=== PATIENT | female | born 1970 | race African-American/Black ===

== ENCOUNTER 2018-08-31 14:27 | Inpatient (IN) | payer MEDICAID ==
[~2018-08-31] VITALS: Ht 167.6 cm; Wt 124.3 kg
[~2018-08-31 14:27] MED LIST: ACET-2178 PO; AMLO10TA80 PO; DESL5TAB PO; DORZ10DR9 EACHEYE; ESTR0.6264 MT; GABA-529 PO; LOSA50TA20 PO; OMEP20CA10 PO; SERT50TA PO; TOLT4CAP PO; XALAO EACHEYE
[2018-08-31] MEDS ORDERED: MAGNESIUM/ALUMINUM HYDROXIDE/SIMETHICONE 30ML UDC PO STA (15:16)
[2018-08-31] MEDS ORDERED: SODIUM CHLORIDE 0.9% 1,000 ML IV ONE (15:16)
[2018-08-31] MEDS ORDERED: VISCOUS LIDOCAINE 2% 15 ML UDC PO STA (15:16)
[2018-08-31] MEDS ORDERED: FAMOTIDINE 20MG/2ML VIAL IV STA (15:16)
[2018-08-31] MEDS ORDERED: ONDANSETRON HCL 4MG/2ML INJ IV STA (15:16)
[2018-08-31] MEDS ORDERED: MORPHINE SULFATE 4 MG/ML CPJ (NOT FOR IM USE) IV STA (15:16)
[2018-08-31] MEDS ORDERED: ASPIRIN 81MG TABLET PO ONE (15:30)
[2018-08-31 16:50] LABS: BASOPHILS % 0.4 % (0.0-2.0); EOSINOPHILS % 0.2 % (0.0-5.0); HEMATOCRIT. 37.9 % (36.0-48.0); HEMOGLOBIN. 12.7 g/dL (12.0-16.0); LYMPHOCYTES % 14.5 % (20.0-50.0); MEAN CORPUSCULAR HEMOGLOBIN 30.9 pg (28.0-32.0); MEAN CORPUSCULAR VOLUME 92.5 fL (81.0-99.0); MEAN PLATELET VOLUME 9.5 fl (7.4-10.4); MONOCYTES % 3.3 % (2.0-8.0); NEUTROPHILS % 81.6 % (40.0-76.0); PLATELET 351 x1000/uL (130-400); RED CELL DISTRIBUTION WIDTH 13.7 % (11.6-14.6)
[2018-08-31 16:51] LABS: CHLORIDE 104 mEq/L (98-107)
[2018-08-31 16:54] LABS: PARTIAL THROMBOPLASTIN TIME 27.4 sec (23.4-31.0); PROTHROMBIN TIME 9.8 sec (9.1-11.1)
[2018-08-31 18:02] LABS: CLARITY URINE CLEAR (CLEAR); COLOR URINE YELLOW (YELLOW); KETONES URINE 1+ (NEGATIVE); LEUKOCYTE ESTERASE URINE NEGATIVE (NEGATIVE); NITRITE URINE NEGATIVE (NEGATIVE); OCCULT BLOOD URINE TRACE (NEGATIVE); PH URINE >=9.0 (4.5-8.0); PROTEIN URINE TRACE (NEGATIVE); SPECIFIC GRAVITY URINE 1.016 (1.005-1.030); UROBILINOGEN URINE 0.2 E.U./dL (0.2-1.0)
[2018-08-31 18:17] LABS: *AMPHETAMINES SCREEN URINE NEGATIVE (NEGATIVE); *BARBITURATES SCREEN URINE NEGATIVE (NEGATIVE); *BENZODIAZEPINES SCREEN URINE NEGATIVE (NEGATIVE); *COCAINE SCREEN URINE NEGATIVE (NEGATIVE)
[2018-08-31 18:18] LABS: METHADONE URINE SCREEN NEGATIVE (NEGATIVE); OPIATES URINE SCREEN NEGATIVE (NEGATIVE); PHENCYCLIDINE URINE SCREEN NEGATIVE (NEGATIVE)
[2018-08-31 18:19] LABS: CANNABINOID URINE SCREEN PRESUMTIVE POSITIVE (NEGATIVE)
[2018-08-31] MEDS ORDERED: ONDANSETRON HCL 4MG/2ML INJ IV ONE (19:00)
[2018-08-31] MEDS ORDERED: HYDRALAZINE 20MG/ML VIAL IV ONE (19:15)
[2018-08-31 22:10] VITALS: BP 150/77
[2018-08-31] MEDS ORDERED: ONDANSETRON HCL 4MG/2ML INJ IV PRN (22:30)
[2018-08-31] MEDS ORDERED: KETOROLAC 30MG/ML VIAL IV PRN (22:30)
[2018-08-31] MEDS ORDERED: HYDRALAZINE 20MG/ML VIAL IV PRN (22:30)
[2018-08-31] MEDS ORDERED: LORAZEPAM 2MG/ML CPJ IV PRN (22:30)
[2018-08-31 22:50] VITALS: BP 150/77
[2018-08-31] MEDS: MORPHINE SULFATE 4 MG/ML CPJ (NOT FOR IM USE) IV PRN (23:10)
[2018-09-01] VITALS (8 sets, daily range): BP systolic 147–172; BP diastolic 76–95
[2018-09-01] MEDS ORDERED: DORZ10DR9 EACHEYE (00:49)
[2018-09-01] MEDS ORDERED: PRAV40TA PO (00:49)
[2018-09-01 05:33] LABS: BASOPHILS % 0.1 % (0.0-2.0); HEMATOCRIT. 34.4 % (36.0-48.0); HEMOGLOBIN. 11.6 g/dL (12.0-16.0); LYMPHOCYTES % 16.1 % (20.0-50.0); MEAN CORPUSCULAR HEMOGLOBIN 31.3 pg (28.0-32.0); MEAN CORPUSCULAR VOLUME 92.5 fL (81.0-99.0); MEAN PLATELET VOLUME 9.3 fl (7.4-10.4); MONOCYTES % 8.3 % (2.0-8.0); NEUTROPHILS % 75.5 % (40.0-76.0); PLATELET 343 x1000/uL (130-400); RED BLOOD CELL COUNT 3.72 mill/uL (4.2-5.4); RED CELL DISTRIBUTION WIDTH 13.9 % (11.6-14.6)
[2018-09-01 06:21] LABS: CHLORIDE 104 mEq/L (98-107)
[2018-09-01 06:29] LABS: PHOSPHORUS 5.1 mg/dL (2.5-4.9)
[2018-09-01] MEDS ORDERED: DEXT 5%/0.45% NACL KCL 20MEQ/L 1,000 ML IV SCH ×2 (07:00)
[2018-09-01] MEDS: PANTOPRAZOLE SODIUM 40 MG/VIAL IV SCH ×2 (11:12→21:34)
[2018-09-01] MEDS: ENOXAPARIN 30MG/0.3ML SYR SUBCUT SCH ×2 (11:13→21:35)
[2018-09-01] MEDS: DORZOLAM/TIMOLOL 2.23/0.68% OPHTH DROPS 10ML BOTHEYE SCH ×2 (11:13→21:38)
[2018-09-01] MEDS: MORPHINE SULFATE 4 MG/ML CPJ (NOT FOR IM USE) IV PRN ×2 (12:32→20:20)
[2018-09-01] MEDS ORDERED: AMLODIPINE 10MG TABLET PO NR (21:30)
[2018-09-01] MEDS ORDERED: LOSARTAN POTASSIUM 50 MG TABLET PO NR (21:30)
== END 2018-09-01 22:36 | disposition home or self-care (01) | DRG 241 ==
LOC: ER 14:34 → EDBEDREQ 19:15 → 5WST 19:15 → EDBEDREQTM 19:15 → ENRESERV 20:08
PROVIDERS: ADMIT Internal Medicine; ATTEND Internal Medicine
DX: K27.3 Acute peptic ulcer, site unspecified, without hemorrhage or perforation (principal); E66.01 Morbid (severe) obesity due to excess calories; F32.9 Major depressive disorder, single episode, unspecified; E78.00 Pure hypercholesterolemia, unspecified; I10 Essential (primary) hypertension; K29.70 Gastritis, unspecified, without bleeding; K21.9 Gastro-esophageal reflux disease without esophagitis; G47.33 Obstructive sleep apnea (adult) (pediatric); R07.9 Chest pain, unspecified; E87.6 Hypokalemia; H40.9 Unspecified glaucoma; Z87.11 Personal history of peptic ulcer disease; Z68.41 Body mass index [BMI] 40.0-44.9, adult; Z88.8 Allergy status to other drugs, medicaments and biological substances; Z91.018 Allergy to other foods; Z79.899 Other long term (current) drug therapy
CPT/HCPCS: 36415; 71045; 74018; 74176; 76700; 80305; 83735; 83880; 84100; 84484; 93005; 93970; 96361; 96374; 96375; 96376; 99285; C9113; J0360; J1650; J1885; J2270; J2405; J3490; J7030